=== PATIENT | female | born 1965 | race Caucasian/White ===

== ENCOUNTER 2017-02-15 10:29 | Observation (INO) ==
[2017-02-15] MEDS ORDERED: *HR* Morphine 2 MG/ML SYRINGE IVP ONE (11:04)
[2017-02-15] MEDS ORDERED: Aspirin 81 MG TAB.CHEW PO ONE (11:04)
--- NOTE | 2017-02-15 11:08 | Emergency Department Note ---
Disposition Clinical Impression: Unstable angina pectoris Disposition: Admitted As Inpatient Condition: Good Referrals: Rowdy Elkins DO [Primary Care Provider] - Forms: ED Satisfaction Letter Time of Disposition: 12:38 Chest Pain HPI - General Chief Complaint: ED Chest Pain Stated Complaint: Chest Pain Time Seen by Provider: 02/15/17 10:53 Source: patient Vital Signs Reviewed: Yes Nursing Notes Reviewed: Yes - History of Present Illness HPI Narrative: 51 on female presents emergency room for chest pain. Onset was 4 days ago. Intermittent. [place] like it was getting worse today. Pain radiates from the left chest up into the left neck and left arm. 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 Had a cardiac catheter at that time did not find any blockages. She has no stents. She states she cannot take nitroglycerin due to allergic reaction. She rates her pain a 7 out of 10. No other associated symptoms. No other complaints at this time. Onset (ago): day(s) (4 days) Duration: intermittent Onset: during rest Pain Location: left chest Severity: moderate Severity scale (1-10): 7 Quality: tightness, heaviness Pain Radiation: LUE, neck, jaw/teeth Improves with: nothing Worsens with: nothing Associated symptoms: Reports: nausea. Denies: vomiting, diaphoresis Treatments prior to arrival chest pain: none - Related Data Allergies Allergy/AdvReac Type Severity Reaction Status Date / Time nitroglycerin Allergy See Verified 02/15/17 10:32 Comments All systems ED: reviewed and negative except as stated. Constitutional: Reports: as per HPI Eyes: Reports: as per HPI Cardiovascular: Reports: chest pain Respiratory: Reports: as per HPI Gastrointestinal: Reports: as per HPI Genitourinary: Reports: as per HPI Musculoskeletal: Reports: as per HPI Integumentary: Reports: as per HPI Neurological: Reports: as per HPI Psychiatric: Reports: as per HPI Endocrine: Reports: as per HPI Chest Pain PMH - Past Medical History Medical history: Reports: other Psychiatric history: Reports: no psych history - Social History Smoking Status: Never smoker Alcohol use: Reports: occasionally Drug use: Reports: none Physical Exam - General General appearance: alert, in no apparent distress - Head Head exam: atraumatic, normocephalic - Eye Eye exam: Present: normal appearance - ENT ENT exam: normal exam - Neck Neck exam: Present: normal inspection - Chest Chest inspection: Present: normal inspection - Respiratory Respiratory exam: Present: normal lung sounds bilaterally - Cardiovascular Cardiovascular exam: Present: regular rate, normal rhythm, normal heart sounds - Abdominal Exam Abdominal exam: Present: soft, Non-Tender, normal bowel sounds - Extremities Exam Extremities exam: Present: normal inspection - Expanded Lower Extremity Exam Hip/Pelvis exam: Present: normal inspection - Neurological Exam Neurological exam: Present: alert, oriented X3 - Psychiatric Psychiatric exam: Present: normal affect, normal mood - Skin Skin exam: Present: warm, dry, intact Course Vital Signs Temperature 97.4 F L 02/15/17 10:32 Pulse Rate 85 02/15/17 10:32 Respiratory Rate 16 02/15/17 10:32 Blood Pressure 152/90 02/15/17 10:32 O2 Sat by Pulse Oximetry 100 02/15/17 10:32 Temperature 97.4 F L 02/15/17 10:32 Pulse Rate 85 02/15/17 10:32 Respiratory Rate 16 02/15/17 10:32 Blood Pressure 152/90 02/15/17 10:32 O2 Sat by Pulse Oximetry 100 02/15/17 10:32 Oxygen Delivery Oxygen Delivery Room Air Chest Pain - MDM Narrative Medical decision making narrative: We will admit the patient for cardiac observation. Pain is improved after morphine. She states she is unable to take nitroglycerin - Medical Records Medical records reviewed: Yes I reviewed the patient's medical records. - Lab Data Lab results reviewed: Yes I reviewed the patient's lab results. Result diagrams: 02/15/17 11:24 02/15/17 11:24 Lab Results 02/15/17 02/15/17 02/15/17 Range/Units 11:24 11:24 11:24 WBC 4.9 (4.3-11.1) K/mcL RBC 3.85 (3.82-4.97) M/mcL Hgb 9.1 L (11.5-15.4) g/dL Hct 30.4 L (35.3-44.9) % MCV 79.0 L (83.0-100.0) fL MCH 23.6 L (28.0-33.3) pg MCHC 29.9 L (31.6-35.5) g/dL RDW 15.1 H (11.5-14.5) % Plt Count 313 (140-400) K/mcL MPV 9.7 (9.4-12.4) fL Immature Gran % 0.4 (0-4) % Seg Neutrophils % 66.1 % Lymphocytes % 24.0 % Monocytes % 7.3 % Eosinophils % 1.2 % Basophils % 1.0 % Neutrophils # 3.2 (1.6-8.9) K/mcL Lymphocytes # 1.2 (0.6-4.6) K/mcL Monocytes # 0.4 (0.0-1.3) K/mcL Eosinophils # 0.1 (0.0-0.6) K/mcL Basophils # 0.1 (0.0-0.2) K/mcL Immature Plt Fraction 2.7 (1.1-6.1) % PT 11.0 (9.4-12.1) Seconds INR 1.0 APTT 26.2 (26.0-36.0) Seconds D-Dimer 252 (0-500) ng/mLFEU Sodium 138 (136-145) mEq/L Potassium 4.3 (3.5-4.5) mEq/L Chloride 106 (98-109) mEq/L Carbon Dioxide 26 (19-29) mEq/L BUN 12 (7-20) mg/dL Creatinine 0.75 (0.57-1.11) mg/dL Est GFR ( Amer) > 60 (> 60) Est GFR (Non-Af Amer) > 60 (> 60) BUN/Creatinine Ratio 16 (6-26) Glucose 104 H (70-99) mg/dL Calculated Osmolality 286 (280-300) Calcium 8.9 (8.6-10.8) mg/dL Troponin I (0-0.03) ng/mL 02/15/17 Range/Units 11:24 WBC (4.3-11.1) K/mcL RBC (3.82-4.97) M/mcL Hgb (11.5-15.4) g/dL Hct (35.3-44.9) % MCV (83.0-100.0) fL MCH (28.0-33.3) pg MCHC (31.6-35.5) g/dL RDW (11.5-14.5) % Plt Count (140-400) K/mcL MPV (9.4-12.4) fL Immature Gran % (0-4) % Seg Neutrophils % % Lymphocytes % % Monocytes % % Eosinophils % % Basophils % % Neutrophils # (1.6-8.9) K/mcL Lymphocytes # (0.6-4.6) K/mcL Monocytes # (0.0-1.3) K/mcL Eosinophils # (0.0-0.6) K/mcL Basophils # (0.0-0.2) K/mcL Immature Plt Fraction (1.1-6.1) % PT (9.4-12.1) Seconds INR APTT (26.0-36.0) Seconds D-Dimer (0-500) ng/mLFEU Sodium (136-145) mEq/L Potassium (3.5-4.5) mEq/L Chloride (98-109) mEq/L Carbon Dioxide (19-29) mEq/L BUN (7-20) mg/dL Creatinine (0.57-1.11) mg/dL Est GFR ( Amer) (> 60) Est GFR (Non-Af Amer) (> 60) BUN/Creatinine Ratio (6-26) Glucose (70-99) mg/dL Calculated Osmolality (280-300) Calcium (8.6-10.8) mg/dL Troponin I 0.00 (0-0.03) ng/mL - Radiology Data Radiology results reviewed: Yes I reviewed the patient's radiology results. - EKG Data EKG attestation: Yes I reviewed and interpreted this EKG. EKG results narrative: EKG shows a rate of 80. Normal sinus rhythm. Normal axis. CA interval 132. QRS 86. QT 416. no signs of Acute ischemia.
[2017-02-15 11:31] LABS: Basophils # 0.1 K/mcL (0.0-0.2); Eosinophils # 0.1 K/mcL (0.0-0.6); Eosinophils % 1.2 %; Hematocrit 30.4 % (35.3-44.9); Hemoglobin 9.1 g/dL (11.5-15.4); Immature Granulocytes % 0.4 % (0-4); Immature Platelets 2.7 % (1.1-6.1); Lymphocytes # 1.2 K/mcL (0.6-4.6); Mean Corpuscular HGB Conc 29.9 g/dL (31.6-35.5); Mean Corpuscular Hemoglobin 23.6 pg (28.0-33.3); Mean Platelet Volume 9.7 fL (9.4-12.4); Monocytes # 0.4 K/mcL (0.0-1.3); Monocytes % 7.3 %; Neutrophils # 3.2 K/mcL (1.6-8.9); Platelet Count 313 K/mcL (140-400); Red Blood Count 3.85 M/mcL (3.82-4.97); Red Cell Distribution Width 15.1 % (11.5-14.5); Segmented Neutrophils % 66.1 %
[2017-02-15 11:38] LABS: Activated Partial Thrombo Time 26.2 Seconds (26.0-36.0)
[2017-02-15 11:43] LABS: BUN/Creatinine Ratio 16 (6-26); Blood Urea Nitrogen 12 mg/dL (7-20); Calcium 8.9 mg/dL (8.6-10.8); Carbon Dioxide 26 mEq/L (19-29); Chloride 106 mEq/L (98-109); Glucose 104 mg/dL (70-99); Osmolality,Calculated 286 (280-300); Potassium 4.3 mEq/L (3.5-4.5); Sodium 138 mEq/L (136-145); eGFR For African Americans > 60 (> 60); eGFR For Non-African Americans > 60 (> 60)
[2017-02-15] MEDS ORDERED: Naloxone 0.4 MG/ML INJ IVP PRN (13:19)
[2017-02-15] MEDS ORDERED: *HR* Morphine 2 MG/ML SYRINGE IVP PRN (13:19)
[2017-02-15] MEDS ORDERED: *HR* OxyCODONE Immed Rel 5 MG TABLET PO PRN (13:19)
[2017-02-15] MEDS ORDERED: Acetaminophen 325 MG TABLET PO PRN (13:19)
[2017-02-15] MEDS ORDERED: Ondansetron 4 MG/2 ML VIAL IVP PRN (13:19)
--- NOTE | 2017-02-15 13:27 | Internal Med History&Physical ---
Date of Encounter: 02/15/17 Time of Encounter: 13:26 Assessment and Plan (1) Chest pain Current visit: Yes Status: Acute Patient with atypical chest pain, or 4 days duration with initial negative troponins and unremarkable EKG. Patient had a left heart catheterization done 5 years ago which revealed 20% stenosis in LAD and RCA. Her last echocardiogram was July 2014 except for mild tricuspid regurgitation was essentially normal. She reports a history of Prinzmetal angina, but she currently has no medications per chart Continue aspirin, check lipid panel, start on Lipitor, Obtain echocardiogram, if troponins are negative obtain stress test in the morning. Due to hx of Prinzmental angina, we will start patient on calcium channel sam at this time. It is also possible that patient's chest pain is as a result of demand from her moderate anemia , since she has also symptoms of anemia including easy fatigability and generalized weakness. Monitor blood pressure closely. We will consult cardiology prn Qualifiers: Chest pain type: unspecified Qualified Code(s): R07.9 - Chest pain, unspecified (2) History of Prinzmetal angina Current visit: Yes Status: Suspected As above (3) Anemia Current visit: Yes Status: Acute Possibly from menorrhagia Send iron panel, folate, vit B12 Start iron therapy empirically Hb at this time stable at 9 Qualifiers: Anemia type: iron deficiency Iron deficiency anemia type: chronic blood loss Qualified Code(s): D50.0 - Iron deficiency anemia secondary to blood loss (chronic) Internal Medicine - H&P: HPI Chief complaint: Chest pain Admitted From: Home Plans for Post Hospital Care: Home History of present illness: Ms. Quesada is a 51 year old female Seen and evaluated at bedside with family. 51-year-old female with no past medical history save for associated presents mental angina diagnosed 5 years ago after she had chest pain with negative. She presents today with complaints of 4 days history of chest pain located on the left side, sharp and radiating to her neck, and chills. She denies shortness of breath associated with chest pain. She denies diaphoresis. She continued to be of the pain at home once today at work when she felt faint and almost passed out since her presentation to the ER. She reports associated easy fatigability, difficulty breathing on exertion, and generalized weakness and tiredness. She denies diaphoresis, she denies nausea vomiting, she denies dizziness. She reports a history of menorrhagia, and she is being worked up by her psychiatric registered nurse. In the ER, she was complaining of 7/10 chest pain which was relieved aspirin and morphine. At that time will review she did not have chest pain. Workup from in the ER included a negative chest x-ray, EKG with nonspecific T-wave changes, hemoglobin of 9 with microcytosis MCV of 79., Normal platelet, chemistry unremarkable. Initial troponin negative. Past Med Surg Social Fam HX - Past Medical History Medical history: other Psychiatric history: no psych history - Social History Smoking Status: Never smoker Smokeless Tobacco Status: No Alcohol use: occasionally Drug use: none Internal Medicine - H&P: Meds Ibuprofen [Advil] 400 - 600 mg PO Q6H PRN 02/15/17 [History] Allergies nitroglycerin Allergy (Verified 02/15/17 12:49) See Comments felt like she was having a stroke All Systems PM: A 10-system review of systems was performed and is negative for pertinent findings except as documented above in the HPI. - Constitutional Constitutional: no chills, no fever(s), no night sweats - EENT Eyes: no change in vision, no discharge, no pain, no photophobia Ears: as per HPI Nose, mouth and throat: as per HPI - Cardiovascular Cardiovascular ROS IM: as per HPI - Respiratory Respiratory: as per HPI - Gastrointestinal Gastrointestinal: no abdominal pain, no diarrhea, no hematemesis, no hematochezia, no melena, no nausea, no vomiting - Genitourinary Genitourinary: no change in urinary stream, no dysuria, no flank pain, no hematuria - Musculoskeletal Musculoskeletal ROS IM: no numbness, no tingling - Integumentary Integumentary IM: no rash, no unusual bruising - Neurological Neurological ROS: no confusion, no convulsions, no focal weakness, no numbness, no tingling, no tremor(s) - Hematologic/Lymphatic Hematologic/Lymphatic: no easy bruising - Constitutional Vitals: Temp Pulse Resp BP Pulse Ox 97.4 F L 70 18 125/89 97 02/15/17 10:32 02/15/17 12:00 02/15/17 13:00 02/15/17 13:00 02/15/17 12:00 General appearance: Present: A&O X 3, pleasant, no acute distress - Head Head exam: Present: atraumatic, normocephalic - Eye Eye exam: Present: PERRL, conjuntiva pink, sclera anicteric Pupils: Present: PERRL - Neck Neck exam general surgery: Present: supple, trachea midline. Absent: lymphadenopathy - Respiratory Respiratory exam: Present: CTAB. Absent: accessory muscle use, rales, rhonchi, wheezes - Cardiovascular Cardiovascular exam: Present: RRR, +S1, +S2. Absent: diastolic murmur, gallop, rubs, systolic murmur - GI/Abdominal GI/Abdominal exam: Present: normal bowel sounds, soft, no peritoneal signs. Absent: distended, tenderness - Extremities Exam Extremities exam: Present: warm, radial pulses palpable and symetrical. Absent : calf tenderness, cyanotic, pedal edema - Neurological Exam Neurological exam: Present: alert, CN II-XII intact, oriented X3, no focal deficits. Absent: pronater drift, facial droop, speech deficit - Skin Skin exam: Present: dry, intact Internal Med - H&P Results - Labs CBC & Chem 7: 02/15/17 11:24 02/15/17 11:24
[2017-02-15 13:47] LABS: Hemoglobin A1C 5.4 %
[2017-02-15 13:56] LABS: % Iron Saturation 3 % (15-50); Chol/HDL Ratio 4.2 (0-4.9); Cholesterol 215 mg/dL (< 200); HDL Cholesterol 51 mg/dL (40-59); Iron 18 mcg/dL (50-170); LDL Cholesterol,Calculated 141 mg/dL (0-99); Transferrin 388 mg/dL (180-382); Triglycerides 113 mg/dL (< 150)
[2017-02-15] MEDS: Diltiazem CD (24hr) 240 MG CAPSULE PO SCH (14:33)
[2017-02-15] MEDS: Ascorbic Acid 500 MG TABLET PO SCH (14:33)
[2017-02-15 15:23] LABS: Folate 13.2 ng/mL (7.0-31.4)
[2017-02-16 04:46] LABS: Basophils # 0.1 K/mcL (0.0-0.2); Basophils % 0.9 %; Eosinophils # 0.1 K/mcL (0.0-0.6); Eosinophils % 2.3 %; Hematocrit 29.2 % (35.3-44.9); Hemoglobin 8.6 g/dL (11.5-15.4); Immature Granulocytes % 0.4 % (0-4); Lymphocytes # 1.8 K/mcL (0.6-4.6); Lymphocytes % 33.3 %; Mean Corpuscular HGB Conc 29.5 g/dL (31.6-35.5); Mean Corpuscular Hemoglobin 23.6 pg (28.0-33.3); Mean Platelet Volume 10.3 fL (9.4-12.4); Monocytes # 0.5 K/mcL (0.0-1.3); Monocytes % 9.8 %; Neutrophils # 2.8 K/mcL (1.6-8.9); Platelet Count 290 K/mcL (140-400); Red Blood Count 3.65 M/mcL (3.82-4.97); Red Cell Distribution Width 14.8 % (11.5-14.5); Segmented Neutrophils % 53.3 %
[2017-02-16 04:57] LABS: BUN/Creatinine Ratio 18 (6-26); Blood Urea Nitrogen 14 mg/dL (7-20); Calcium 8.4 mg/dL (8.6-10.8); Carbon Dioxide 24 mEq/L (19-29); Chloride 106 mEq/L (98-109); Glucose 101 mg/dL (70-99); Osmolality,Calculated 287 (280-300); Potassium 3.7 mEq/L (3.5-4.5); Sodium 138 mEq/L (136-145); eGFR For African Americans > 60 (> 60); eGFR For Non-African Americans > 60 (> 60)
[2017-02-16] MEDS ORDERED: Regadenoson 0.4 MG/5 ML SYRINGE IVP ONE (07:18)
[2017-02-16] MEDS ORDERED: Aspirin Enteric Coated 81 MG Tablet PO SCH (09:00)
--- NOTE | 2017-02-16 10:53 | ECHO - Doppler Report ---
Echocardiogram Name: Mckayla Quesada Date of Study: 02/15/2017 Date: 1965 Ht: 61.0 in Medical Record#: [id number] Age: 51 Wt: 146.0 lb Gender: Female BSA: 1.65 Order #: [id number] Location: [facility] Room #: [id number] Reading Physician: Cody Ayala DO, FACDAYDAY Aden Associate Product Manager: Janine Pereyra RDCS Ordering Physician: Lucas Campbell MD Primary Physician: Rowdy Elkins DO Indications: Hx prinzmental angina, Chest pain Impressions: LVEF 65%. Normal LV chamber size, wall thickness and function. Normal right ventricular structure and function. No evidence of pulmonary hypertension. No significant valvular dysfunction. Left Ventricular Wall Motion: Rest Echo Findings All wall segments showed normal motion. Findings: Study Quality * Technically adequate exam. ECG Findings * Normal sinus rhythm. Left Ventricle * LVEF 65%. * Normal LV chamber size, wall thickness and function. Right Ventricle * Normal right ventricular structure and function. Left Atrium * Normal left atrial size. Right Atrium * Normal right atrial size. Interatrial Septum * No evidence of PFO by color Doppler. Aortic Valve * Trileaflet aortic valve with normal function. * No aortic regurgitation. * No aortic stenosis. Mitral Valve * Normal mitral valve structure and function. * No mitral regurgitation. * No mitral stenosis. Tricuspid Valve * Normal tricuspid valve structure and function. * Trace tricuspid regurgitation. * No evidence of pulmonary hypertension. Pulmonic Valve * Normal pulmonic valve structure and function. * No pulmonic regurgitation. Aorta * Normally sized aortic root. Pericardium * The pericardium appears normal. IVC * Normal IVC dimensions and inspiratory collapse. Pulmonary Artery * Normal visualized portions of the main pulmonary artery. History Family History of CAD History of CAD/PTCA 07/12/2014 a Previous Echo was performed. Measurements: BP: 117/ 67 2D Normal Values RVIDd: 2.60 cm <2.7 cm IVSd: .81 cm 0.6 - 1.0 cm LVIDd: 4.03 cm 3.7 - 5.6 cm LVPWd: 1.08 cm 0.6 - 1.1 cm LVIDs: 2.24 cm 1.5 - 3.6 cm AO: 2.50 cm < 4.0 cm LA: 3.40 cm 2.0 - 4.0cm %FS: 44.40 cm >25 % LA volume: 32 Mitral Valve Peak E:.99 m/sec Peak A:.72 m/sec E/A Ratio:1.4 Peak E' Lat Live:12.1 cm/s Peak E' Med Live:10.3 cm/s E/E' Lat Ratio:8.1 E/E' Med Ratio:9.6 Tricuspid Valve TV Regurg Peak Grad: 13.00mmHg TV Regurg Peak Live: 1.77m/sec Updated by Cody Ayala DO, GAEL, DAYDAY, CHANDRIKA on 02/16/2017 10:46:11 AM electronically signed on 02/16/2017 10:47:19 AM with status of Final Wall Motion Thompson: 1=Normal, 2=Hypokinesis, 3=Akinesis, 4=Dyskinesis, 5=Aneurysmal, 6=Hyperkinetic, X=Not Visualized (Blank)=Missing
[2017-02-16] MEDS: Ascorbic Acid 500 MG TABLET PO SCH (10:55)
[2017-02-16] MEDS: Diltiazem CD (24hr) 240 MG CAPSULE PO SCH (10:55)
[2017-02-16 11:01] VITALS: BP 111/76
--- NOTE | 2017-02-16 11:28 | Nuclear Medicine Stress Report ---
Low Level Regadenoson Name: Mckayla Quesada Date of Study: 02/16/2017 Date: 1965 Ht: 61.0 in Medical Record#: [id number] Age: 51 Wt: 145.0 lb Gender: Female Order #: [id number] Location: [facility] Room: [facility] Supervising Provider: Una Goff CNP Reading Physician: Cody Ayala DO, [facility] Ordering Physician: Chantal Ferguson CNP Primary Care Physician: Rowdy Elkins DO Stress Technologist: Matthew Evans, INTERNATIONAL SALES REPRESENTATIVE, CCT [employer] Shothole Driller: Sarath Álvarez Indications: Chest Pain Impression: Low level exercise/ pharmacologic stress ECG is negative for ischemia at level of heart rate achieved. Gated EF > 70%. Perfusion imaging was negative for ischemia or infarct. History: Hypertension Hypercholesteremia Stress Test Summary: Stress Test Type: Low level pharmacologic Regadenoson 0.4mg/5ml given IV Baseline Information: Initial Heart Rate: 90 Blood Pressure: 98/64 Stress Information: Stress Time: 4 min 00 sec Test Terminated Due to (primary): Completed Protocol Maximum Blood Pressure: 110/70 Maximum Heart Rate: 129 Percent Maximum Heart Rate Achieved: 76 Double Product: 14,190 METS Reached: 2.1 Symptoms: Nausea, Flushing Nuclear Summary: SPECT myocardial perfusion imaging using Tc99m Sestamibi given intravenously was performed at rest and following cardiac stress testing. The resting images were obtained following initial dose of 11.3 mCi. Following stress an additional dose of 26.6 mCi was given at peak exercise or 30 seconds post regadenoson infusion. Medication Given: Time Medication Dose Units Route Findings: Stress Note * Resting ECG demonstrated normal sinus rhythm. * No baseline arrhythmias were noted. * Low level exercise/ pharmacologic stress ECG is negative for ischemia at level of heart rate achieved. * No chest pain or arrhythmias during stress. Hemodynamic responses * Normal hemodynamic responses to low level exercise plus pharmacologic stress. Study Quality * Study quality is good. Gated EF > 70% * Gated EF > 70%. Left Ventricle * The left ventricle is not dilated. * LVEDV = 65 mL. NORMALS * Normal wall motion. * Normal Segmental Perfusion in rest. * Normal segmental perfusion in stress. TID * No evidence of transient ischemic dilatation. TID ratio * TID ratio = 1.13. Lung Uptake * There is no evidence of increase lung uptake. Updated by Cody Ayala DO, GAEL, CHANDRIKA NAYLOR on 02/16/2017 11:20:46 AM electronically signed on 02/16/2017 11:21:03 AM with status of Final
--- NOTE | 2017-02-16 13:16 | Discharge Summary ---
Date of Encounter: 02/16/17 Time of Encounter: 12:15 - Discharge Diagnosis (1) Chest pain Priority: Primary Status: Acute Comments: Pt reports a history of chest pain "for months" patient states that he has to climb to a peak before it gets better. She was admitted to the emergency department yesterday with complaint 4 days of chest pain that radiated into her left arm and left neck. She is a prior history of Prinzmetal's angina she is currently not treated for. She had a prior heart catheter done 5 years ago which revealed 20% stenosis in LAD and RCA. Continue her aspirin, start her on Lipitor, and a calcium channel sam. Echocardiogram was done yesterday and shows LVEF of 65%, otherwise unremarkable with no valvular dysfunction or pulmonary hypertension. Stress test today showed the perfusion imaging was negative for ischemia or infarct, and she has a gated EF of greater than 70%. Patient is chest pain-free at this time. Qualifiers: Chest pain type: unspecified Qualified Code(s): R07.9 - Chest pain, unspecified (2) History of Prinzmetal angina Priority: Secondary Status: Chronic Comments: Chronic. Patient has remained pain-free. Plan as above (3) Anemia Priority: Secondary Status: Acute Comments: Patient states that she has been having a menstrual cycle for the last 8-9 weeks. Her hemoglobin is 8.6, hematocrit is 29.2. Folate is 13.2 normal, B12 is 497 normal, iron is low at 18 and percent saturation is low at 3. Patient has been started on ferrous sulfate and will continue at home. She also states that she has an appointment with Dr. Self next week for testing to determine origin and cauterization of bleeding. She says that she does not appear to be more tired than normal. 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 She says that she does not become short of breath with exertion. Qualifiers: Anemia type: iron deficiency Iron deficiency anemia type: chronic blood loss Qualified Code(s): D50.0 - Iron deficiency anemia secondary to blood loss (chronic) - Discharge Medications Prescriptions: Ascorbic Acid [Vitamin C] 500 mg PO DAILY #30 tablet Aspirin Enteric Coated [Aspirin EC] 81 mg PO DAILY #30 tablet. Atorvastatin [Lipitor] 40 mg PO HS #30 tablet Diltiazem CD (24hr) [Cardizem CD] 240 mg PO DAILY #30 cap.er.24h Docusate [Colace] 100 mg PO BID #60 capsule Ferrous Sulfate 325 mg PO BIDWM #60 tablet Home Medications: Ascorbic Acid [Vitamin C] 500 mg PO DAILY #30 tablet 02/16/17 [Rx] Aspirin Enteric Coated [Aspirin EC] 81 mg PO DAILY #30 tablet. 02/16/17 [Rx] Atorvastatin [Lipitor] 40 mg PO HS #30 tablet 02/16/17 [Rx] Diltiazem CD (24hr) [Cardizem CD] 240 mg PO DAILY #30 cap.er.24h 02/16/17 [Rx] Docusate [Colace] 100 mg PO BID #60 capsule 02/16/17 [Rx] Ferrous Sulfate 325 mg PO BIDWM #60 tablet 02/16/17 [Rx] Allergies/Adverse Reactions: Allergies nitroglycerin Allergy (Verified 02/15/17 12:49) See Comments felt like she was having a stroke Procedures/tests Complete & Pending: Procedures Performed prior 72 hours Category Date Time Status NM chu perf SPECT multi [NM] Routine Exams 02/16/17 08:00 Taken EV echocardiogram Routine Y 02/15/17 13:24 Completed SP pharm nuclear stress Routine Y 02/16/17 08:00 Completed Date of admission: 02/15/17 12:53 Primary care physician: Rowdy Elkins Discharging clinician: Chantal Ferguson Anticipated date of discharge: 02/16/17 - Patient Status Disposition: Home, Self-Care Functional capacity at discharge: independent ambulation Overall status at discharge: patient is back to baseline - Discharge Instructions Instructions: Diltiazem (By mouth) Additional Instructions: Start taking your Iron supplements as directed, take 1 with Vitamin C daily to help with absorption. Resume your other home medications Start your other new medicaitons tomorrow. Take your statin at night. Follow up with Dr. Self next week as scheduled. REturn to the ER if you have any new or wosening conditions, or you become more fatigued, short of breath, or if your chest pain returns. - Diet and Activity Activity: increase activity as tolerated Diet: advance to your usual diet Interval History: Patient presented to the emergency room yesterday for 4 day history of chest pain with radiation to her left arm and shoulder. She does tell me that this has gone on for months and that it always builds to a crescendo before it gets better. She says that sometimes it lasts for an hour sometimes 20 minutes. She does not report diaphoresis, nausea, vomiting, or shortness of breath. She has a LHC done 5 years ago, 20% stenosis in LAD and RCA. She reports a history of Prinzmetal angina and is not currently treated for that, she has been started on diltiazem 240 mg by mouth daily. She will continue her aspirin, she has been started on a statin. She had an echocardiogram yesterday that showed LVEF of65% withnormal RV structure and function and no significant valvular dysfunction. She also had a stress test that had a gaited EF greater than 70% and perfusion imaging was negative for ischemia or infarct. Her low level exercise/pharmacologic stress ECG is negative for ischemia at level of heart rate achieved. Hemoglobin is 8.6 today. She says that she has been having a period for 8-9 weeks. She is seeing her STATISTICAL ENGINEER next week for testing. She says that it has been heavy at times and also is light at times. This could also potentially be a cause of her chest pain due to demand. She denies symptoms with it. 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 She denies dyspnea on exertion or extreme fatigue. Her iron level was low at 18 and her percent saturation is 3. She is being started on vitamin C 500 mg by mouth daily and ferrous sPatient's vitals have been within normal limits.ulfate 324 mg by mouth twice a day. Vital signs admitted with normal normal limits. Patient states that she will follow up with her primary care physician, and she also has follow-up with STATISTICAL ENGINEER for vaginal bleeding. Patient is stable and appropriate for discharge. Hospital course: Ms. Quesada is a 51 year old female - Time Spent with Patient Total time spent providing and/or coordinating discharge services: Less than 30 minutes - Constitutional Vitals: Temp Pulse Resp BP Pulse Ox 97.7 F 52 17 111/76 98 02/16/17 11:00 02/16/17 11:00 02/16/17 11:00 02/16/17 11:00 02/16/17 11:00 General appearance: Present: A&O X 3, pleasant, no acute distress, answers questions appropriately - Head Head exam: Present: normal inspection - Eye Eye exam: Present: normal appearance, conjuntiva pink - ENT ENT exam: Present: mucous membranes moist, normal exam - Neck Neck exam general surgery: Present: normal inspection. Absent: lymphadenopathy , tenderness - Respiratory Respiratory exam: Present: CTAB. Absent: rales, respiratory distress, rhonchi, wheezes - Cardiovascular Cardiovascular exam: Present: RRR, +S1, +S2. Absent: diastolic murmur, systolic murmur - Expanded Cardiovascular Exam Peripheral pulses: 2+: Dorsalis Pedis (L) PM, Dorsalis Pedis (R) PM - GI/Abdominal GI/Abdominal exam: Present: normal bowel sounds, soft. Absent: distended, firm , tenderness - Extremities Exam Extremities exam: Present: normal capillary refill, warm, radial pulses palpable and symetrical. Absent: pedal edema, tenderness - Neurological Exam Neurological exam: Present: alert, oriented X3, no focal deficits, strengths equal and symetr throughout
--- NOTE | 2017-02-16 15:09 | Electrocardiograph Report ---
[address] [address] Test Date: 2017-02-15 Pat Name: Mckayla uQesada Department: 105 Room: 3B45 Gender: F Distribution Manager: : [id number] Requested By: Florin Art Order Number: [id number] Reading MD: Ioana Mae Measurements Intervals Allen Rate: 80 P: 18 DC: 132 QRS: 17 QRSD: 86 T: 30 QT: 380 QTc: 416 Interpretive Statements SINUS RHYTHM NONSPECIFIC ST ELEVATION [0.05+ mV ST ELEVATION] Electronically Signed On 02-16-2017 15:08:20 EDT by Ioana Mae
== END 2017-02-16 15:10 | disposition home or self-care (01) ==
LOC: EMEROO 10:29 → 3BNU 10:29
PROVIDERS: ADMIT Internal Medicine; ATTEND Registered Nurse

== ENCOUNTER 2020-11-07 19:22 | Observation (INO) ==
[2020-11-07 21:04] LABS: Bacteria,Urine Few per hpf (None-Few); Bilirubin,Urine Negative (Negative); Blood,Urine Trace (Negative); Calcium Oxalate Crystals,Urine Present; Clarity,Urine Turbid (Clear); Color,Urine Yellow (Yellow); Glucose,Urine (UA) Normal (Normal); Hyaline Casts,Urine Few per lpf (None Seen); Ketones,Urine 60 mg/dL (Negative); Leukocyte Esterase,Urine Negative (Negative); Mucus,Urine Few per lpf (None-Few); Nitrite,Urine Negative (Negative); PH,Urine 5.5 pH Units (5.0-8.0); Protein,Urine 30 mg/dL (Neg-Trace); RBC,Urine 0-3 per hpf (0-3); Specific Gravity,Urine > 1.030 (1.010-1.025); Squamous Epithelial Cell,Urine Few per hpf (None-Few); Urobilinogen,Urine Normal (Normal)
[2020-11-07] MEDS ORDERED: Isovue-370 500 ML BOTTLE IVP ONE (21:33)
[2020-11-07] MEDS ORDERED: 0.9 % Sodium Chloride 1,000 ML IVC ONE (21:33)
[2020-11-07] MEDS ORDERED: Ondansetron 4 MG/2 ML VIAL IVP ONE (21:33)
[2020-11-07 21:52] LABS: Basophils # 0.1 K/mcL (0.0-0.2); Basophils % 0.9 %; Eosinophils % 0.7 %; Hematocrit 43.6 % (35.3-44.9); Hemoglobin 15.2 g/dL (11.5-15.4); Immature Granulocytes % 0.3 % (0-4); Lymphocytes # 1.5 K/mcL (0.6-4.6); Mean Corpuscular HGB Conc 34.9 g/dL (31.6-35.5); Mean Corpuscular Hemoglobin 31.3 pg (28.0-33.3); Mean Corpuscular Volume 89.7 fL (83.0-100.0); Mean Platelet Volume 10.1 fL (9.4-12.4); Monocytes # 0.6 K/mcL (0.0-1.3); Neutrophils # 3.7 K/mcL (1.6-8.9); Platelet Count 280 K/mcL (140-400); Red Blood Count 4.86 M/mcL (3.82-4.97); Red Cell Distribution Width 11.4 % (11.5-14.5); Segmented Neutrophils % 63.1 %; White Blood Count 5.8 K/mcL (4.3-11.1)
[2020-11-07 22:14] LABS: Alanine Aminotransferase 46 Units/L (7-52); Albumin 4.5 g/dL (3.5-5.7); Albumin/Globulin Ratio 1.7 (1.1-2.2); Alkaline Phosphatase 49 Units/L (34-104); Aspartate Amino Transferase 36 Units/L (13-39); BUN/Creatinine Ratio 21 (6-26); Bilirubin,Total 0.9 mg/dL (0.3-1.0); Blood Urea Nitrogen 17 mg/dL (6-20); Calcium 9.4 mg/dL (8.6-10.3); Carbon Dioxide 27 mEq/L (23-29); Chloride 104 mEq/L (98-107); Globulin 2.6 g/dL (2.4-3.5); Glucose 96 mg/dL (70-105); Lipase 11 Units/L (11-82); Osmolality,Calculated 291 (280-300); Potassium 3.7 mEq/L (3.5-5.1); Sodium 140 mEq/L (136-145); Total Protein 7.1 g/dL (6.4-8.9); Troponin I < 0.03 ng/mL (< 0.04); eGFR For African Americans > 60 (> 60); eGFR For Non-African Americans > 60 (> 60)
[2020-11-08] MEDS ORDERED: 0.9 % Sodium Chloride 1,000 ML IVC ONE (00:23)
[2020-11-08] MEDS ORDERED: *HR* Promethazine 25 MG/ML VIAL IM PRN (01:22)
[2020-11-08] MEDS ORDERED: Naloxone 0.4 MG/ML INJ IVP PRN (01:22)
[2020-11-08 01:44] LABS: Adenovirus Not Detected (Not Detect); Bordetella Pertussis Not Detected (Not Detect); Chlamydophila pneumoniae Not Detected (Not Detect); Coronavirus 229E Not Detected (Not Detect); Coronavirus HKU1 Not Detected (Not Detect); Coronavirus NL63 Not Detected (Not Detect); Coronavirus OC43 Not Detected (Not Detect); Human Metapneumovirus Not Detected (Not Detect); Human Rhinovirus/Enterovirus Not Detected (Not Detect); Influenza A Subtype 2009 H1 Not Detected (Not Detect); Influenza B Not Detected (Not Detect); Mycoplasma pneumoniae Not Detected (Not Detect); Parainfluenza Virus 1 Not Detected (Not Detect); Parainfluenza Virus 2 Not Detected (Not Detect); Parainfluenza Virus 3 Not Detected (Not Detect); Parainfluenza Virus 4 Not Detected (Not Detect); Respiratory Syncytial Virus Not Detected (Not Detect); SARS-CoV-2 Not Detected (Not Detect)
[2020-11-08] MEDS: Ringers Solution, Lactated 1,000 ML IVC SCH ×3 (02:57→20:28)
[2020-11-08 05:26] LABS: Basophils % 0.8 %; Eosinophils % 0.8 %; Hematocrit 38.5 % (35.3-44.9); Immature Granulocytes % 0.2 % (0-4); Lymphocytes # 1.1 K/mcL (0.6-4.6); Lymphocytes % 21.1 %; Mean Corpuscular Hemoglobin 30.3 pg (28.0-33.3); Mean Corpuscular Volume 89.1 fL (83.0-100.0); Mean Platelet Volume 10.2 fL (9.4-12.4); Monocytes # 0.5 K/mcL (0.0-1.3); Monocytes % 9.2 %; Neutrophils # 3.4 K/mcL (1.6-8.9); Platelet Count 225 K/mcL (140-400); Red Blood Count 4.32 M/mcL (3.82-4.97); Red Cell Distribution Width 11.4 % (11.5-14.5); Segmented Neutrophils % 67.9 %
[2020-11-08 05:27] LABS: Hemoglobin 13.1 g/dL (11.5-15.4)
[2020-11-08] MEDS: *HR* Enoxaparin 40 MG/0.4 ML SYRINGE SQ SCH (05:37)
[2020-11-08 05:44] LABS: Alanine Aminotransferase 38 Units/L (7-52); Albumin 3.7 g/dL (3.5-5.7); Albumin/Globulin Ratio 1.9 (1.1-2.2); Alkaline Phosphatase 40 Units/L (34-104); Aspartate Amino Transferase 30 Units/L (13-39); BUN/Creatinine Ratio 19 (6-26); Bilirubin,Total 0.9 mg/dL (0.3-1.0); Blood Urea Nitrogen 12 mg/dL (6-20); Calcium 8.3 mg/dL (8.6-10.3); Carbon Dioxide 21 mEq/L (23-29); Chloride 111 mEq/L (98-107); Glucose 77 mg/dL (70-105); Magnesium 1.8 mg/dL (1.6-2.6); Osmolality,Calculated 289 (280-300); Phosphorous 2.6 mg/dL (2.7-4.5); Potassium 3.5 mEq/L (3.5-5.1); Sodium 140 mEq/L (136-145); Total Protein 5.7 g/dL (6.4-8.9); Troponin I < 0.03 ng/mL (< 0.04); eGFR For African Americans > 60 (> 60); eGFR For Non-African Americans > 60 (> 60)
[2020-11-08 05:58] LABS: Thyroid Stimulating Hormone 0.716 mcIU/mL (0.340-5.600)
[2020-11-08] MEDS: Calcium Gluconate 1gm/50mL 1 GM/50 ML BAG IVPB SCH ×2 (07:28→08:35)
[2020-11-08] MEDS: ARGININE HCL PO SCH ×3 (07:29→21:00)
[2020-11-08] MEDS: amLODIPine 5 MG TABLET PO SCH (07:32)
[2020-11-08] MEDS ORDERED: Multivit/Ca/Min/Fe/FA 1 TAB TABLET PO SCH (09:00)
[2020-11-08 12:37] LABS: Hematocrit 38.3 % (35.3-44.9); Hemoglobin 13.1 g/dL (11.5-15.4)
[2020-11-08] MEDS ORDERED: Prochlorperazine 10 MG/2 ML VIAL IVP ONE (17:21)
[2020-11-08] MEDS: Psyllium 1 PACKET POWD.PACK PO SCH ×2 (18:37→20:33)
[2020-11-08] MEDS: Lactobacillus 1 EACH CAP.SPRINK PO SCH (18:37)
[2020-11-09 03:54] VITALS: BP 118/82
[2020-11-09] MEDS: *HR* Enoxaparin 40 MG/0.4 ML SYRINGE SQ SCH (05:30)
[2020-11-09] MEDS: ARGININE HCL PO SCH (07:35)
[2020-11-09] MEDS: Psyllium 1 PACKET POWD.PACK PO SCH (07:35)
[2020-11-09] MEDS: amLODIPine 5 MG TABLET PO SCH (07:40)
[2020-11-09] MEDS: Lactobacillus 1 EACH CAP.SPRINK PO SCH (07:40)
== END 2020-11-09 10:25 | disposition home or self-care (01) ==
LOC: EMEROOARM 19:22 → 3ANU 19:22 → SUATTDRO 11-08 01:47 → 3ANU 11-08 01:51
PROVIDERS: ADMIT Internal Medicine; ATTEND Internal Medicine